=== PATIENT | female | born 1980 | race Caucasian/White ===

== ENCOUNTER 2024-04-27 03:44 | Day surgery (SDC) | payer OTHER ==
[2024-04-26 08:55] VITALS: BMI 28.9
[2024-04-27] MEDS ORDERED: MIDAZOLAM HCL 2 MG/2 ML SINGLE DOSE VIAL ONE (10:50)
[2024-04-27] MEDS ORDERED: PROPOFOL 20 ML ONE (10:50)
[2024-04-27] MEDS ORDERED: ONDANSETRON 4 MG/2 ML VIAL ONE (10:54)
[2024-04-27] MEDS ORDERED: SUCCINYLCHOLINE CHLORIDE 200 MG/10 ML SYRINGE ONE (10:56)
[2024-04-27] MEDS ORDERED: ONDANSETRON 4 MG/2 ML VIAL IVPUSH PRN (12:12)
[2024-04-27] MEDS ORDERED: oxyCODONE HCL 5 MG TABLET PO PRN (12:12)
[2024-04-27 14:20] VITALS: RESP 16; TEMP 97.6
[2024-04-27 16:59] VITALS: BP 115/75; PULSE 88
== END 2024-04-27 16:10 | disposition home or self-care (01) ==
LOC: JASU-SURG 03:44
PROVIDERS: ATTEND Obstetrics & Gynecology Obstetrics
PROC: 0U5B8ZZ Destruction of Endometrium, Via Natural or Artificial Opening Endoscopic (ICD-10-PCS; principal; 2024-04-27 10:00)
DX: N85.4 Malposition of uterus (principal); N92.0 Excessive and frequent menstruation with regular cycle
CPT/HCPCS: 94760